=== PATIENT | male | born 1985 | race Caucasian/White ===

== ENCOUNTER → 2017-11-14 08:23 | Outpatient (CLI) | payer OTHER, SELFPAY ==
--- NOTE | 2017-11-14 08:29 | XR_ITS ---
XR knee RT 4V HISTORY: ITS.REASON: 4 views weightbearing ORDERING PHYSICIAN: Charly Lilly MD PATIENT AGE: 32 years COMPARISON: None FINDINGS: Weightbearing views show mild osteoarthritic change of the lateral compartment and patellofemoral joint. There is a small suprapatellar effusion. Osteophyte formation is present at the intercondylar region. No fracture or dislocation. IMPRESSION: Mild osteoarthritis with small knee joint effusion
--- NOTE | 2017-11-14 08:41 | XR_ITS ---
XR foot wt bearing RT 3V HISTORY: ITS.REASON: pain ORDERING PHYSICIAN: Charly Lilly MD PATIENT AGE: 32 years COMPARISON: None FINDINGS: No fracture or dislocation. No lytic or blastic change. There is normal mineralization.. The joint spaces are well-preserved. No significant degenerative/arthritic changes. No erosive changes evident. There is a small calcaneal spur at 6 mm. Enthesophyte is present at the Achilles's insertion. IMPRESSION: Small calcaneal spur otherwise negative right foot
--- NOTE | 2017-11-14 08:41 | XR_ITS ---
XR foot wt bearing LT 3V HISTORY: ITS.REASON: pain ORDERING PHYSICIAN: Charly Lilly MD PATIENT AGE: 32 years COMPARISON: None FINDINGS: There is a prominent calcaneal spur at 15 mm. Enthesophyte is noted at the Achilles insertion. No bony erosive process evident. Normal alignment with no other significant anomalies. IMPRESSION: Prominent calcaneal spur otherwise negative left foot
== END ==
PROVIDERS: PCP Nurse Practitioner Family; Visit Provider Orthopaedic Surgery
DX: M25.561 Pain in right knee (principal); M79.673 Pain in unspecified foot
CPT/HCPCS: 73564; 73630

== ENCOUNTER → 2017-11-21 14:06 | Outpatient (CLI) | payer OTHER, SELFPAY ==
--- NOTE | 2017-11-21 14:13 | MR_ITS ---
MR knee RT wo con HISTORY: Right knee pain and limited range of motion following injury ITS.REASON: right knee pain ORDERING PHYSICIAN: Charly Lilly MD PATIENT AGE: 32 years Comparison: 11/14/2017 TECHNIQUE: Standard multiplanar multiecho sequences are performed without contrast. FINDINGS: The resolution is limited as the body coil had to be used due to patient's body habitus and there is mild motion artifact. The cruciate ligaments are intact. The collateral ligaments, patellar tendon, and quadriceps tendon also appear intact. The lateral meniscus has an unremarkable appearance. The 2 horn medial meniscus is unremarkable. The posterior horn of the medial meniscus is smaller than expected with somewhat irregular appearance posteriorly. If there has NOT been a prior surgery then, meniscal tear is considered. There is increased T2 signal involving the medial aspect of the proximal tibia posteriorly consistent with bone contusion. No obvious fractures are evident. Osteoarthritic changes are present involving all 3 compartments. Patellar cartilage is preserved. There is mild lateral patellar subluxation. There is a small knee joint effusion mainly in the suprapatellar region. IMPRESSION: 1. Abnormal appearance of the posterior horn of medial meniscus smaller than expected. Differential diagnosis includes complex meniscal tear versus prior meniscectomy 2. Bone bruise of the proximal tibia medially and posteriorly. 3. Osteoarthritis with knee joint effusion
== END ==
PROVIDERS: PCP Nurse Practitioner Family; Visit Provider Orthopaedic Surgery
DX: S89.91XA Unspecified injury of right lower leg, initial encounter (principal)
CPT/HCPCS: 73721

== ENCOUNTER → 2017-12-03 14:44 | Outpatient (CLI) | payer OTHER, SELFPAY ==
[2017-12-03 15:19] LABS: Basophils # 0.1 K/mm3 (0-0.2); Basophils % 0.5 % (0.1-2.0); Eosinophils # 0.3 K/mm3 (0.0-0.4); Eosinophils % 2.8 % (0.1-12.0); Hematocrit 45.3 % (42.0-52.0); Hemoglobin 14.3 g/dL (14.1-18.0); Lymphocytes # 2.1 K/mm3 (0.7-4.5); Lymphocytes % 18.4 K/mm3 (10-50); Mean Corpuscular HGB Conc 31.6 g/dL (31.8-35.4); Mean Corpuscular Hemoglobin 26.2 pg (27.0-31.2); Mean Corpuscular Volume 82.7 fl (80-94); Mean Platelet Volume 6.8 fl (7.4-10.4); Monocytes # 0.5 K/mm3 (0.1-1.0); Monocytes % 4.1 % (1.7-9.3); Neutrophils # 8.5 K/mm3 (1.8-7.8); Neutrophils % 74.2 % (37.0-80.0); Platelet Count 325 K/mm3 (142-424); Red Blood Count 5.48 M/mm3 (4.60-6.20); Red Cell Distribution Width 13.9 % (11.5-17.5); White Blood Count 11.5 K/mm3 (4.8-10.8)
[2017-12-03 20:04] LABS: Anion Gap 12.1 mEq/L (5-15); Blood Urea Nitrogen 12 mg/dL (7-18); Calcium 9.1 mg/dL (8.5-10.1); Carbon Dioxide 26 mmol/L (21.0-32.0); Chloride 102 mmol/L (98-107); Creatinine,Serum 0.89 mg/dL (0.70-1.30); Estimated Glomerular Filt Rate 98 ml/min (>60); GFR (African American) 119 ML/MIN (>60); Glucose 79 mg/dL (74-106); Potassium 4.1 mmoL/L (3.5-5.1); Sodium 136 mmol/L (136-145)
== END ==
PROVIDERS: PCP Nurse Practitioner Family; Visit Provider Orthopaedic Surgery
DX: Z01.812 Encounter for preprocedural laboratory examination (principal)
CPT/HCPCS: 36415; 80048; 85025

== ENCOUNTER → 2021-09-21 08:25 | Outpatient (CLI) | payer MEDICAID, SELFPAY ==
--- NOTE | 2021-09-21 08:30 | XR_ITS ---
FINAL REPORT CLINICAL HISTORY: knee pain COMPARISON: December 29, 2017 FINDINGS: 3 views of the right knee were obtained. There is no acute fracture or dislocation. There is abnormal sclerosis in the medial tibial plateau that is increased since the prior exam. There are moderate hypertrophic changes of the medial and lateral joint margins at F increased as well. There are osteophytes along the undersurface of the patella. A small joint effusion is present. IMPRESSION: Moderate, progressed osteoarthritis. Sclerotic focus in the medial tibial plateau is favored to be degenerative but has progressed since last exam. Consider CT or MRI. Reviewed, Interpreted and Dictated by Trey Marley MD Transcribed by Azael Gutierrez Authenticated and . [facility]
== END ==
PROVIDERS: Visit Provider Orthopaedic Surgery
DX: M25.561 Pain in right knee (principal)
CPT/HCPCS: 73562

== ENCOUNTER → 2021-09-26 10:49 | Outpatient (CLI) | payer MEDICAID, SELFPAY ==
--- NOTE | 2021-09-26 10:49 | MR_ITS ---
FINAL REPORT CLINICAL HISTORY: ANTERIOR KNEE PAIN AROUND PATELLA, HX TORN MENISCUS WITH SURGERY 2018. NO INJURY FINDINGS: Multiplanar MR imaging of the right knee was performed without contrast. Exam is obscured by machine artifact which makes evaluation more difficult. There are postoperative changes of the medial meniscus without a convincing tear. The lateral meniscus is intact. The anterior and posterior cruciate ligaments are intact. The medial collateral ligament and lateral ligamentous complex are intact. The patellar and quadriceps tendons are intact. There is no evidence of fracture. Moderate degenerative changes are present. There is mild and moderate chondromalacia. There is a 21 mm sclerotic focus in the medial tibial plateau of uncertain etiology, could represent chronic osteonecrosis. There is mild lateral patellar subluxation. Moderate joint effusion is seen. The musculature is intact. No soft tissue mass or cyst is identified. IMPRESSION: No convincing meniscal tear identified. Degenerative change and chondromalacia. Focus in the medial tibial plateau, could represent chronic osteonecrosis. Reviewed, Interpreted and Dictated by Freedom Kuhn III, MD Transcribed by Zoe Martinez Authenticated and . [facility]
== END ==
PROVIDERS: Visit Provider Orthopaedic Surgery
DX: M25.561 Pain in right knee (principal)
CPT/HCPCS: 73721

== ENCOUNTER → 2023-02-19 07:06 | Outpatient (CLI) | payer OTHER, SELFPAY ==
[2023-02-19 18:52] LABS: Basophils % 0.5 % (0.1-2.0); Eosinophils # 0.3 K/mm3 (0.0-0.4); Eosinophils % 3.4 % (0.1-12.0); Hematocrit 44.4 % (42.0-52.0); Hemoglobin 14.8 g/dL (14.1-18.0); Lymphocytes % 24.9 % (10-50); Mean Corpuscular HGB Conc 33.3 g/dL (31.8-35.4); Mean Corpuscular Hemoglobin 27.3 pg (27.0-31.2); Mean Platelet Volume 9.1 fl (7.4-10.4); Monocytes # 0.5 K/mm3 (0.1-1.0); Neutrophils # 5.2 K/mm3 (1.8-7.8); Neutrophils % 65.2 % (37.0-80.0); Platelet Count 368 K/mm3 (142-424); Red Blood Count 5.42 M/mm3 (4.60-6.20); Red Cell Distribution Width 14.7 % (11.5-17.5)
[2023-02-19 20:31] LABS: Alanine Aminotransferase 25 U/L (12-78); Albumin Level 4.6 g/dl (3.5-5.0); Albumin/Globulin Ratio 1.3 (1.1-1.8); Alkaline Phosphatase 90 U/L (38-126); Anion Gap 10.9 mEq/L (5-15); Aspartate Amino Transferase 28 U/L (17-59); Blood Urea Nitrogen 13 mg/dl (9-20); Calcium 9.2 mg/dl (8.4-10.2); Carbon Dioxide 25 mmol/L (22.0-30.0); Chloride 104 mmol/L (98-107); Chol/HDL Ratio 4.8 (1-3.5); Cholesterol 181 mg/dl (140-200); Estimated Glomerular Filt Rate 84 ml/min (>60); GFR (African American) 101 ML/MIN (>60); Globulin 3.6 g/dL (1.3-3.2); Glucose 94 mg/dl (74-100); HDL Cholesterol 38 mg/dl (40-60); Potassium 3.9 mmoL/L (3.5-5.1); Sodium 136 mmol/L (136-145); Total Protein,Serum 8.2 g/dl (6.3-8.2); Triglycerides 134 mg/dl (30-150); VLDL Cholesterol 27 mg/dL (0-40)
[2023-02-19 20:42] LABS: Direct LDL Cholesterol 107.21 mg/dL (100-129)
[2023-02-19 21:01] LABS: Thyroid Stimulating Hormone 1.57 uIU/mL (0.465-4.68)
[2023-02-19 21:20] LABS: Vitamin B12 423 pg/mL (239-931)
[2023-02-19 22:11] LABS: Microalbumin/Creatinine Ratio 6.3
[2023-02-19 22:13] LABS: Creatinine,Urine Random 176 mg/dL (Not Estab.)
[2023-02-19 23:17] LABS: Hemoglobin A1C 5.3 % (4.0-6.0)
== END ==
PROVIDERS: PCP Nurse Practitioner; Visit Provider Nurse Practitioner
DX: I10 Essential (primary) hypertension (principal); E66.01 Morbid (severe) obesity due to excess calories; Z68.42 Body mass index [BMI] 45.0-49.9, adult
CPT/HCPCS: 80053; 80061; 82043; 82570; 82607; 83036; 84443; 85025

== ENCOUNTER 2023-09-22 13:05 | Outpatient (CLI) | payer OTHER, SELFPAY ==
--- NOTE | 2023-09-22 13:08 | US_ITS ---
FINAL REPORT CLINICAL HISTORY: hypertension COMPARISON: None FINDINGS: RENAL ULTRASOUND Ultrasound images of the kidneys were obtained. The right kidney measures 10.8 cm in length. There is a 2.3 cm lower pole cyst. There is no hydronephrosis. There is normal echogenicity and cortical thickness. The left kidney measures 9.9 cm in length. There is a 3.1 cm lower pole cyst. There is no hydronephrosis. There is normal cortical thickening and echogenicity. IMPRESSION: Bilateral renal cysts. Otherwise unremarkable exam. Reviewed, Interpreted and Dictated by Debra Mcdermott MD Transcribed by Hermelinda Aguirre Authenticated and [facility]
--- NOTE | 2023-09-22 13:08 | XR_ITS ---
FINAL REPORT CLINICAL HISTORY: resistant HTN FINDINGS: PA and lateral views of the chest are obtained. There is no prior exam for comparison. The cardiac and mediastinal silhouettes are within normal limits. The lungs are clear. There is no pleural effusion, pneumothorax, or acute osseous abnormality. IMPRESSION: No radiographic evidence of acute cardiac or pulmonary disease. Reviewed, Interpreted and Dictated by Debra Mcdermott MD Transcribed by Hermelinda Aguirre Authenticated and [facility]
== END 2023-09-22 23:59 | disposition home or self-care (01) ==
LOC: RAD 13:06
PROVIDERS: PCP Nurse Practitioner; Visit Provider Nurse Practitioner
DX: I10 Essential (primary) hypertension (principal); I1A.0 Resistant hypertension
CPT/HCPCS: 71046; 76770

== ENCOUNTER 2023-09-23 13:09 | Outpatient (CLI) | payer OTHER, SELFPAY ==
--- NOTE | 2023-09-23 | ECG_ITS ---
APPROVED REPORT Exam: Resting ECG HR:53 bpm ECG Measurements Heart Rate 53 AXES WV 201 P 19 QRSd 126 QRS -3 QT 413 T 7 QTc 397 Conclusion SINUS BRADYCARDIA MODERATE INTRAVENTRICULAR CONDUCTION DELAY [110+ ms QRS DURATION] BORDERLINE ECG UNCONFIRMED REPORT Electronically signed by : Demarcus Gutierrez MD 09/24/2023 07:09:55
[2023-09-23 14:10] LABS: Alanine Aminotransferase 31 U/L (12-78); Albumin Level 4.3 g/dl (3.5-5.0); Albumin/Globulin Ratio 1.3 (1.1-1.8); Alkaline Phosphatase 80 U/L (38-126); Anion Gap 12.4 mEq/L (5-15); Aspartate Amino Transferase 29 U/L (17-59); Bilirubin,Total 1.7 mg/dl (0.2-1.3); Blood Urea Nitrogen 15 mg/dl (9-20); Calcium 10.1 mg/dl (8.4-10.2); Carbon Dioxide 26 mmol/L (22.0-30.0); Chloride 103 mmol/L (98-107); Estimated Glomerular Filt Rate 83 ml/min (>60); GFR (African American) 101 ML/MIN (>60); Globulin 3.3 g/dL (1.3-3.2); Glucose 92 mg/dl (74-100); Potassium 4.4 mmoL/L (3.5-5.1); Sodium 137 mmol/L (136-145); Total Protein,Serum 7.6 g/dl (6.3-8.2)
== END 2023-09-23 23:59 | disposition home or self-care (01) ==
LOC: LAB 13:10
PROVIDERS: PCP Nurse Practitioner; Visit Provider Nurse Practitioner
DX: I10 Essential (primary) hypertension (principal)
CPT/HCPCS: 36415; 80053; 93005

== ENCOUNTER 2023-09-29 13:21 | Outpatient (CLI) | payer OTHER, SELFPAY ==
--- NOTE | 2023-09-29 13:35 | CA_ITS ---
FINAL REPORT TECHNIQUE: Grayscale, color Doppler and duplex Doppler ultrasound of the kidneys, aorta and renal arteries was performed. Multiple velocities were measured. CLINICAL HISTORY: HTN,OBESITY COMPARISON: None FINDINGS: Aorta velocity: 124 cm/sec Right kidney: 10.3 cm. No evidence of hydronephrosis or mass. Right intrarenal RI: 0.41-0.61 Right renal artery velocity: 239 cm/sec. Right RAR (Renal artery-Aortic Ratio): 1.92 Left Kidney: 11.6 cm. No evidence of hydronephrosis or mass. Left intrarenal RI: 0.51-0.54 Left renal artery velocity: 157 cm/sec. Left RAR (Renal Artery-Aortic Ratio): 1.27 IMPRESSION: Flow velocities are mildly elevated in the right suggesting moderate stenosis approaching 50%. Flow velocities on the left are normal with less than 50% stenosis. CT angiogram or postcontrast MR angiogram would be more sensitive for evaluation of possible renal artery stenosis. Reviewed, Interpreted and Dictated by Willa Donato MD Transcribed by Hermelinda Aguirre Authenticated and [facility]
== END 2023-09-29 23:59 | disposition home or self-care (01) ==
LOC: RAD 13:22
PROVIDERS: PCP Nurse Practitioner; Visit Provider Nurse Practitioner
DX: I1A.0 Resistant hypertension (principal); R06.00 Dyspnea, unspecified; E66.9 Obesity, unspecified; Z68.42 Body mass index [BMI] 45.0-49.9, adult; I10 Essential (primary) hypertension
CPT/HCPCS: 93976

== ENCOUNTER 2023-10-07 13:25 | Outpatient (CLI) | payer OTHER, SELFPAY ==
--- NOTE | 2023-10-07 13:25 | CA_ITS ---
APPROVED REPORT EXAM: Comprehensive 2D, Doppler, and color-flow Echocardiogram Ct Scan Technologist: Abigail Monsalve RVT Ht: 6 ft 0 in Wt: 356lbs BSA: 2.72 BP: 176/90 mmHg Indications: HTN,HUBBARD 2D Dimensions LA Volume 88.40 mL LA Volume Index 32.50 mL/m2 (M/F) 16-34 M-Mode Dimensions RVDd 3.31 cm (0.9-2.6) LA Diam 3.93 cm (1.9-4.0) LVDd 5.77 cm (3.5-5.7) LVDs 3.58 cm (3.5-5.7) IVSd 0.98 cm (0.6-1.1) PWd 0.54 cm (0.6-1.1) EF (Teich) 67.40% FS 38.00% EDV (Teich) 164.60 mL ESV (Teich) 53.70 mL LV Diastology E Decel Time 290 (160-240 msec) E/A Ratio 1.4 Aortic Valve TAISHA Index 1.00 cm2/m2 AoV Peak Rahul. 155.0 (50-130 cm/s) AI PHT 1042.00 ms AO Peak GR. 9.60 mmHg AO Mean GR. 5.20 (<5 mmHg) AO VTI 37.4 (18-25 cm) TAISHA (VTI) 2.78 (2.5-4.5 cm2) Mitral Valve MV E Max Rahul. 90.0 (40-130 cm/s) MV A Velocity 66.0 (40-130 cm/s) E/A Ratio 1.37 MV PHT 85.0 ms Pulmonary Valve PV Peak Velocity 82.0 (50-150 cm/s) Left Ventricle The left ventricle is normal size. The left ventricular systolic function is normal. The left ventricular ejection fraction is within the normal range. There is increased LV wall thickness. There is normal LV segmental wall motion. The left ventricular diastolic function is normal. LVEF is 55%. Right Ventricle The right ventricle is normal size. The right ventricular systolic function is normal. Atria The left atrium size is normal. The right atrium size is normal. There is no Doppler evidence of interatrial shunt. Aortic Valve The aortic valve opens well. There is no aortic valvular stenosis. Mild aortic regurgitation. Mitral Valve The mitral valve is normal in structure. No evidence of mitral valve stenosis. There is no mitral valve regurgitation noted. Tricuspid Valve The tricuspid valve leaflets are thin and pliable. Trace tricuspid regurgitation. There is insufficient TR jet to estimate RVSP. Pulmonic Valve The pulmonary valve is normal in structure. Trace pulmonic regurgitation. Great Vessels The aortic root is normal in size. The ascending aorta is not well-visualized. IVC is normal in size and collapses >50% with inspiration. Pericardium There is no pericardial effusion. Other Information Study Quality: Adequate Conclusion Normal biventricular systolic function. Mild AI. Electronically signed by : Pamela Jeff MD 10/07/2023 23:52:00
== END 2023-10-07 23:59 | disposition home or self-care (01) ==
LOC: RT 13:25
PROVIDERS: PCP Nurse Practitioner; Visit Provider Nurse Practitioner
DX: R06.00 Dyspnea, unspecified (principal); I1A.0 Resistant hypertension
CPT/HCPCS: 93306

== ENCOUNTER 2023-10-30 07:43 | Day surgery (SDC) | payer OTHER, SELFPAY ==
[2023-10-30] VITALS (12 sets, daily range): BP systolic 104–150; BP diastolic 62–83; PULSE 50–67; RESP 15–18; TEMP 36.7–36.9; O2SAT 92–100; BMI 48.8
--- NOTE | 2023-10-30 07:05 | IR_ITS ---
APPROVED REPORT Patient Location: Outpatient [employer] Installer: ALBAN Gallardo RT (R) PROCEDURES Bilateral selective renal angiogram INDICATION Abnormal renal duplex, Hypertension, Suspect renal artery stenosis based on abnormal renal duplex Informed consent was obtained prior to the procedure. COMPLICATIONS None Estimated Blood Loss: Less than 10 mls TECHNIQUE 1% lidocaine used to anesthetize the right femoral groin. The right femoral artery was accessed via the Seldinger technique. A 4 Frisian sheath was placed in the right femoral artery. The JR4 catheter was used to selectively intubate each renal artery. At the end of the diagnostic angiogram the patient was transferred to the postop holding area in stable condition for sheath removal. ANGIOGRAPHIC RESULTS Bilateral renal arteries were singular and normal IMPRESSION Normal renal arteries PLAN 1. Treatment of essential hypertension and further secondary hypertension workup if clinically appropriate Electronically signed by : Charlie Khan MD 10/30/2023 12:17:09
[2023-10-30 08:11] LABS: Basophils # 0.1 K/mm3 (0-0.2); Chloride 105 mmol/L (98-107); Eosinophils # 0.3 K/mm3 (0.0-0.4); Eosinophils % 3.9 % (0.1-12.0); Hematocrit 46.1 % (42.0-52.0); Hemoglobin 14.6 g/dL (14.1-18.0); Lymphocytes # 2.3 K/mm3 (0.7-4.5); Lymphocytes % 27.4 % (10-50); Mean Corpuscular HGB Conc 31.8 g/dL (31.8-35.4); Mean Corpuscular Hemoglobin 26.6 pg (27.0-31.2); Mean Corpuscular Volume 83.8 fl (80-94); Mean Platelet Volume 7.8 fl (7.4-10.4); Monocytes # 0.5 K/mm3 (0.1-1.0); Monocytes % 5.7 % (1.7-9.3); Neutrophils # 5.3 K/mm3 (1.8-7.8); Platelet Count 383 K/mm3 (142-424); Red Cell Distribution Width 14.7 % (11.5-17.5); Sodium 138 mmol/L (136-145); White Blood Count 8.6 K/mm3 (4.8-10.8)
[2023-10-30 08:12] LABS: Potassium 3.9 mmoL/L (3.5-5.1)
[2023-10-30 08:14] LABS: Blood Urea Nitrogen 16 mg/dl (9-20); Creatinine Clearance Estimated 99 mL/min (50-200); Estimated Glomerular Filt Rate 75 ml/min (>60); GFR (African American) 90 ML/MIN (>60)
[2023-10-30 08:15] LABS: Anion Gap 9.9 mEq/L (5-15); Calcium 9.1 mg/dl (8.4-10.2); Carbon Dioxide 27 mmol/L (22.0-30.0); Glucose 101 mg/dl (74-100)
[2023-10-30] MEDS: diphenhydrAMINE 50MG/ML VIAL 50 MG IV (09:39)
[2023-10-30] MEDS: HEPARIN 1,000 UNITS/500ML NS (CATH LAB) 3000 UNIT IV (09:39)
[2023-10-30] MEDS: 0.9 % SODIUM CHLORIDE 500 ML 25 ML IV (09:40)
[2023-10-30] MEDS: MIDAZOLAM HCL 1MG/1ML 5ML VIAL 1 MG IV (09:40)
[2023-10-30] MEDS: FENTANYL 100MCG/2ML VIAL 50 MCG IV (09:42)
[2023-10-30] MEDS: LIDOCAINE 1% 10ML MDV 20 ML IJ (09:58)
[2023-10-30] MEDS: IOPAMIDOL-370 (76%);100ML BOTTLE 20 ML IV (12:52)
== END 2023-10-30 13:08 | disposition home or self-care (01) ==
LOC: CATHLAB 07:44
PROVIDERS: PCP Nurse Practitioner; Visit Provider Internal Medicine
DX: Z79.899 Other long term (current) drug therapy; I1A.0 Resistant hypertension; E66.9 Obesity, unspecified; Z68.42 Body mass index [BMI] 45.0-49.9, adult; I70.1 Atherosclerosis of renal artery
CPT/HCPCS: 36252; 80048; 85025; 99152; C1725; C1769; C1894; J1200; J1644; J2250; J3010; Q9967

== ENCOUNTER 2024-10-12 15:30 | Outpatient (CLI) | payer OTHER, SELFPAY ==
[2024-10-12 19:13] LABS: Hematocrit 43.9 % (42.0-52.0); Hemoglobin 14.1 g/dL (14.1-18.0); Immature Granulocytes % 0.5 %; Mean Corpuscular HGB Conc 32.1 g/dL (31.8-35.4); Mean Corpuscular Hemoglobin 26.5 pg (27.0-31.2); Mean Corpuscular Volume 82.5 fl (80-94); Nucleated Red Blood Cells % 0 %; Platelet Count 376 K/mm3 (142-424); Red Blood Count 5.32 M/mm3 (4.60-6.20); Red Cell Distribution Width-SD 43.1 fL; White Blood Count 11.1 K/mm3 (4.8-10.8)
[2024-10-12 20:18] LABS: Albumin Level 4.0 g/dl (3.5-5.0); Chloride 101 mmol/L (98-107); Potassium 4.2 mmoL/L (3.5-5.1); Sodium 134 mmol/L (136-145)
[2024-10-12 20:20] LABS: Blood Urea Nitrogen 18 mg/dl (9-20); Creatinine,Serum 1.00 mg/dl (0.66-1.25); Estimated Glomerular Filt Rate 83 ml/min (>60); GFR (African American) 100 ML/MIN (>60)
[2024-10-12 20:21] LABS: Alanine Aminotransferase 20 U/L (12-78); Albumin/Globulin Ratio 1.0 (1.1-1.8); Alkaline Phosphatase 85 U/L (38-126); Anion Gap 10.2 mEq/L (5-15); Aspartate Amino Transferase 24 U/L (17-59); Bilirubin,Total 1.5 mg/dl (0.2-1.3); Calcium 10.0 mg/dl (8.4-10.2); Carbon Dioxide 27 mmol/L (22.0-30.0); Cholesterol 183 mg/dl (140-200); Globulin 4.2 g/dL (1.3-3.2); Glucose 92 mg/dl (74-100); HDL Cholesterol 49 mg/dl (40-60); Total Protein,Serum 8.2 g/dl (6.3-8.2); Triglycerides 104 mg/dl (30-150)
[2024-10-12 20:52] LABS: Thyroid Stimulating Hormone 2.09 uIU/mL (0.465-4.68)
[2024-10-12 21:11] LABS: Hepatitis C Ab Qual. W/ RFX NEGATIVE (Negative)
[2024-10-12 21:21] LABS: Hemoglobin A1C 5.3 % (4.0-6.0)
[2024-10-12 22:50] LABS: Vitamin B12 386 pg/mL (239-931)
[2024-10-15 05:13] LABS: Hepatitis B Surface Antigen Negative (Negative)
== END 2024-10-12 23:59 | disposition home or self-care (01) ==
LOC: LAB.DROPOF 10-13 10:05
PROVIDERS: PCP Nurse Practitioner; Visit Provider Nurse Practitioner
DX: I10 Essential (primary) hypertension (principal); E66.9 Obesity, unspecified; Z11.59 Encounter for screening for other viral diseases; Z86.39 Personal history of other endocrine, nutritional and metabolic disease; E66.01 Morbid (severe) obesity due to excess calories
CPT/HCPCS: 80053; 80061; 82043; 82570; 82607; 83036; 84443; 85025; 86803; 87340; 87389